=== PATIENT | male | born 1950 | race Caucasian/White ===

== ENCOUNTER 2024-07-24 13:30 | Outpatient (RCR) | payer MEDICARE, SELFPAY ==
[2024-07-05 11:00] VITALS: BMI 24.9
[2024-07-24 13:45] VITALS: BMI 24.7
[2024-07-24 13:47] VITALS: BMI 24.7
--- NOTE | 2025-02-21 11:11 | PCDIET ---
[facility]NT notes were faxed to referring provider 07/24/24 after the last [facility]NT follow up.
== END 2024-09-24 10:35 | disposition home or self-care (01) ==
LOC: ANHDMC 13:30
PROVIDERS: PCP Internal Medicine; Visit Provider Internal Medicine
DX: E11.9 Type 2 diabetes mellitus without complications (principal); Z71.3 Dietary counseling and surveillance
CPT/HCPCS: 97802; 97803

== ENCOUNTER 2025-01-21 11:46 | Outpatient (CLI) | payer MEDICARE, SELFPAY ==
--- NOTE | ~2025-01-21 | US_ITS ---
EXAMINATION: US renal BI, 01/21/2025 11:50 [employer]ODUCTION STAFF WORKER HISTORY: Elevated serum creatinine Comparison: None Technique: Lazcano-scale and color Doppler images were obtained. Findings: KIDNEYS: Renal cortices intact, no solid masses, cysts or calculi, no hydronephrosis. Right Kidney: Right kidney measures 10.1 x 4.6 x 5 cm, normal. Left Kidney: Left kidney 10.3 x 5.1 x 5.2 cm, normal. Bladder: The bladder is unremarkable. . Impression: No acute abnormality. Reviewed, dictated and finalized at location P. [employer]AFF WORKER Impression: No acute abnormality.
== END 2025-01-21 11:47 | disposition home or self-care (01) ==
LOC: MICIMG 11:48
PROVIDERS: PCP Internal Medicine; Visit Provider Internal Medicine
DX: R79.89 Other specified abnormal findings of blood chemistry (principal)
CPT/HCPCS: 76770